=== PATIENT | female | born 1990 | race African-American/Black ===

== ENCOUNTER 2022-03-18 07:48 | Emergency (ER) | payer SELFPAY ==
[2022-03-18] MEDS: Ondansetron 4 MG Tab.DIS PO ONE ×2 (08:10→08:11)
[2022-03-18] MEDS ORDERED: Ondansetron 4 MG/2 ML SDV IVPUSH ONE (08:14)
[2022-03-18] MEDS ORDERED: Sodium Chloride 0.9% 1,000 ML IV SCH (08:15)
[2022-03-18] MEDS ORDERED: Sodium Chloride 0.9% 10 ML Syringe FLUSH PRN (08:15)
[2022-03-18] MEDS ORDERED: Ketorolac 15 MG/ML SDV IVPUSH ONE (08:41)
[2022-03-18 08:50] LABS: CHLORIDE,CL 106 mmol/L (98-107); SODIUM,NA 141 mmol/L (136-145)
[2022-03-18 08:55] LABS: ANION GAP 17.4 mmol/L (5-15); ESTIMATED GFR 76 mL/min (>=60)
[2022-03-18 09:14] LABS: RESPIRATORY SYNCYTIAL VIR NAA NEGATIVE (NEGATIVE)
[2022-03-18 09:15] LABS: CORONAVIRUS COVID-19 NAA POSITIVE (NEGATIVE)
[2022-03-18] MEDS ORDERED: Prochlorperazine 10 MG/2 ML SDV IV ONE (09:17)
[2022-03-18] MEDS ORDERED: Iopamidol 612 MG/ML 100 ML Bottle IVPUSH ONE (09:33)
== END 2022-03-18 10:54 | disposition home or self-care (01) ==
LOC: VM.ED 07:48
DX: U07.1 COVID-19 (principal); E86.0 Dehydration
CPT/HCPCS: 0241U; 74177; 80053; 81001; 81025; 82150; 83605; 83690; 83735; 84100; 85025; 86140; 96361; 96374; 96375; 99284; 99284-25; A9270-GY; J0780; J1885; J2405; J7030; Q9967